=== PATIENT | female | born 1980 | race Caucasian/White ===

== ENCOUNTER 2017-08-15 10:08 | Emergency (ER) | payer OTHER, SELFPAY ==
[2017-08-15 10:47] VITALS: BP 146/78
--- NOTE | 2017-08-15 11:08 | EDM.PDOC ---
ED HPI GENERAL MEDICAL PROBLEM - General Chief Complaint: Skin Complaint Stated Complaint: POISON YUKO Time Seen by Provider: 08/15/17 10:50 Source of Information: Reports: Patient History Limitations: Reports: No Limitations - History of Present Illness INITIAL COMMENTS - FREE TEXT/NARRATIVE: 37-year-old female with a widespread contact dermatitis eruption suspected poison yuko on her extremities, face and chest underneath her left breast. She's been covering with topical creams but it's "getting worse". She needs some relief so she can go to work. 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: cyst ruptured on right ovary; ovary removed 14-15 years ago - Infectious Disease History Infectious Disease History: Reports: C-Difficile, Influenza - Past Surgical History HEENT Surgical History: Reports: Adenoidectomy, Oral Surgery, Other (See Below) Social & Family History - Family History Family Medical History: Noncontributory - Tobacco Use Smoking Status *Q: Never Smoker ED ROS GENERAL - Review of Systems Review Of Systems: See Below Constitutional: Denies: Fever Respiratory: Denies: Shortness of Breath GI/Abdominal: Denies: Nausea, Vomiting Neurological: Denies: Headache ED EXAM, SKIN/RASH Exam: See Below Exam Limited By: No Limitations General Appearance: Alert, No Apparent Distress Respiratory/Chest: No Respiratory Distress Skin: Other (Patient has widespread eruptions of contact dermatitis with vesicles and papules with excoriations on an erythematous base of the legs arms and chest and a small amount around the left eye.) Course - Vital Signs Last Recorded V/S: Last Vital Signs Temp 96.3 F 08/15/17 10:56 Pulse 78 08/15/17 10:56 Resp 17 08/15/17 10:56 BP 146/78 H 08/15/17 10:56 Pulse Ox 97 08/15/17 10:56 - Re-Assessments/Exams Free Text/Narrative Re-Assessment/Exam: 08/15/17 11:07 Patient will be placed on prednisone 60 mg daily for 5 consecutive days along with topical triamcinolone cream twice daily. She can return if worsening despite treatment. Departure - Departure Time of Disposition: 11:14 Disposition: Home, Self-Care 01 Condition: Good Clinical Impression: Poison yuko dermatitis - Discharge Information Instructions: Poison Yuko Dermatitis, [id number] Referrals: PCP,None [Primary Care Provider] - Forms: ED Department Discharge Care Plan Goals: Take 3 pills of prednisone daily for the next 5 days with food with your first meal. Apply topical triamcinolone 2-3 times daily as needed, and keep lesions clean while healing. Return if worsening despite treatment.
== END 2017-08-15 11:15 | disposition home or self-care (01) ==
LOC: JP.ED 10:08
DX: L23.7 Allergic contact dermatitis due to plants, except food (principal); Z79.899 Other long term (current) drug therapy; Z88.5 Allergy status to narcotic agent
CPT/HCPCS: 99283